=== PATIENT | male | born 1980 | race Caucasian/White ===

== ENCOUNTER 2025-03-09 17:37 | Emergency (ER) | payer BC, SELFPAY ==
[2025-03-09 17:42] VITALS: BP 141/81; PULSE 77; RESP 18; TEMP 36.8; O2SAT 98; BMI 24.3
[2025-03-09 17:50] LABS: Coronavirus 19, PCR Not Detected (NotDetected); Influenza A, PCR Not Detected (NotDetected); Influenza B, PCR Not Detected (NotDetected)
--- NOTE | 2025-03-09 18:31 | HMH.EDGENADL ---
Discharge Plan Disposition Patient Disposition: Home, Self-Care Condition: Good Referrals Follow up/Referrals: Provider,Referral, [Primary Care Provider, Medical] - See instructions Activity Restrictions/Add. Instructions Additional Instructions/Restrictions: Return to the emergency department or your primary care provider if you continue to have fevers for more than a week. Take Tylenol Motrin at home as needed. Return to the emergency department for any acute worsening symptoms or shortness of breath. Clinical Impressions Clinical Impression: Fever, Cough Stand Alone Forms Stand Alone Forms: Work/School Release Print Language Print Language: Polish Discharge ED Provider: Prabha Betts General Adult HPI General Chief complaint: Upper Respiratory Infection Stated complaint: cough, fever, congestion Time Seen by Provider: 03/09/25 17:42 Mode of Arrival: Ambulatory Source of Information: Patient and Spouse Description of Symptoms (Recalled from ER Triage Doc. by RN): patient presents for day 4 of fevers over 101-104.5 at home. patinet otherwise just feels unwell overall and has a cough with some chest congestion. patient took tylenol 30 minutes prior to arrival. History of Present Illness HPI narrative: Patient is a 45-year-old gentleman with no significant past medical history who presents to the emergency department with a fever for the last 2 days. Patient states that he does not have any chest pain or shortness of breath. Patient states that he has had some cough and upper respiratory symptoms. Patient states that he is mostly here because he just needs a work note. Denies any history of blood clots. He has not had any recent surgeries. Related Data Allergies Allergy/AdvReac Type Severity Reaction Status Date / Time No Known Allergies Allergy Verified 03/09/25 17:[address] [facility] Disclaimer: The information contained in this section may have been updated after the patient was seen, as this information can be updated by other users. Social History Smoking Status: Never smoker alcohol intake: never current occupational status: other Travel in the last 8 weeks?: None ROS Obtained: Yes All systems reviewed & no additional complaints except as documented and Yes Systems reviewed as appropriate & no additional complaints except as documented Physical Exam General General appearance: alert and in no apparent distress Head Head exam: atraumatic, normocephalic and normal inspection Eye Eye exam: Present normal appearance, PERRL and EOMI; Absent scleral icterus ENT ENT exam: Present normal exam, normal oropharynx, mucous membranes moist, TM's normal bilaterally and normal external ear exam Neck Neck exam: Present normal inspection and full ROM Chest Chest inspection: Present normal inspection and symmetric chest wall rise Respiratory Respiratory exam: Present normal lung sounds bilaterally; Absent respiratory distress or wheezes Cardiovascular Cardiovascular exam: Present regular rate, normal rhythm and normal heart sounds Abdominal Exam Abdominal exam: Present soft and distention; Absent tenderness, guarding or rebound Extremities Exam Extremities exam: Present normal inspection and full ROM Back Exam Back exam: Present normal inspection and full ROM Neurological Exam Neurological exam: Present alert and oriented X3 Psychiatric Psychiatric exam: Present normal affect and normal mood Skin Skin exam: Present warm and dry Medical Decision Making Medical Records Medical records reviewed: Yes I reviewed the patient's medical records. Screening: Per USPSTF and CDC recommendations, given the prevalence of disease in our region, it is our hospital?s policy to screen for HIV and viral Hepatitis for all patients aged 18 and over and those with ongoing risk factors. [place] Inquiry Pt receiving controlled substance: No Vital Signs: 03/09/25 17:42 03/09/25 19:30 Temperature 98.3 F 98.2 F Temperature Source Oral Temporal Artery Scan Pulse Rate 76 Pulse Rate [Right Radial] 77 Respiratory Rate 18 18 Blood Pressure 141/82 H Blood Pressure [Right Arm] 141/81 H Blood Pressure Mean [Right Arm] 101 Blood Pressure Source Automatic Cuff Blood Pressure Source [Right Arm] Automatic Cuff Blood Pressure Position Sitting Blood Pressure Position [Right Arm] Sitting 02 Sat by Pulse Oximetry 98 Oxygen Delivery Method Room Air Room Air Lab Data Lab results reviewed: Yes I reviewed the patient's lab results. Lab Results 03/09/25 17:46: SARS-CoV-2 (PCR) Not detected, Influenza A Untype (PCR) Not detected, Influenza Type B (PCR) Not detected Orders (Tests/Meds): ORDERS Category Date Time Status CXR 2 view (NOT portable) [XR chest 2V] Stat Exams 03/09/25 18:44 Completed Rapid PCR Covid and Flu A/B Stat Lab 03/09/25 17:46 Completed Medical Decision Narrative: Patient is an otherwise healthy 45-year-old male who presents to the emergency department with fever. On arrival, patient was hemodynamically stable with unremarkable vital signs. Differential includes but not limited to: Viral syndrome, pneumonia, strep pharyngitis, viral pharyngitis. Patient is a very well-appearing male no neck pain no meningismus to suggest meningitis. Respiratory swab was sent which was negative. Chest x-ray was obtained which was reviewed interpreted by myself and showed no acute focal consolidation, pneumothorax, pleural effusion or other acute cardiopulmonary process. Patient was recommended to take Tylenol Motrin at home. Patient was otherwise discharged home in stable condition with return precautions. Critical Care Critical Care Time Critical Care Time: No
--- NOTE | 2025-03-09 18:44 | XR_ITS ---
PROCEDURE INFORMATION: Exam: XR Chest Exam date and time: 03/09/2025 7:02 PM Age: 45 years old Clinical indication: Shortness of breath; Additional info: Shortness of breath/fever TECHNIQUE: Imaging protocol: Radiologic exam of the chest. Views: 2 views. COMPARISON: No relevant prior studies available. FINDINGS: Lungs: The lungs appear clear. No focal areas of consolidation. Pleural spaces: No pleural effusions. Negative for pneumothorax. Heart/Mediastinum: Cardiac silhouette and pulmonary vasculature are within range of normal. Bones/joints: There is no evidence of acute fracture. IMPRESSION: Negative for an acute cardiopulmonary abnormality.
[2025-03-09 19:30] VITALS: BP 141/82; PULSE 76; RESP 18; TEMP 36.8; O2SAT 100
== END 2025-03-09 19:30 | disposition home or self-care (01) ==
PROVIDERS: Emergency Provider Student in an Organized Health Care Education/Training Program
DX: R50.9 Fever, unspecified (principal); R05.1 Acute cough
CPT/HCPCS: 71046; 87636; 99282; 99283

== ENCOUNTER 2025-04-15 12:29 | Emergency (ER) | payer BC, SELFPAY ==
[2025-04-15 12:31] VITALS: BP 153/88; PULSE 78; RESP 18; TEMP 36.9; O2SAT 99; BMI 25.0
[2025-04-15 12:48] LABS: Coronavirus 19, PCR Not Detected (NotDetected); Influenza A, PCR Not Detected (NotDetected); Influenza B, PCR Not Detected (NotDetected)
[2025-04-15 13:00] VITALS: BP 145/84; PULSE 80; O2SAT 96
--- NOTE | 2025-04-15 13:37 | XR_ITS ---
FINAL REPORT TECHNIQUE: Chest PA & Lateral CLINICAL HISTORY: chronic cough, FEVER COMPARISON: 03/09/2025 FINDINGS: 2 views of the chest were performed. The heart size is normal. The mediastinum is within normal limits. There is no acute cardiopulmonary process. There are no pleural effusions. There is no pneumothorax. The bony thorax appears intact. IMPRESSION: No acute cardiopulmonary process. Reviewed, Interpreted and Dictated by Miky Paul MD Transcribed by Cherrie Garcia Authenticated and [facility]
--- NOTE | 2025-04-15 13:42 | ED_ITS ---
Discharge Plan Disposition Patient Disposition: Home, Self-Care Prescriptions Prescriptions: New azithromycin 250 mg tablet See Rx Instructions .ROUTE .COMPLEX Qty: 6 0RF Rx Instructions: For 250 mg dose pack: take 500 mg today (day 1), then 250 mg for 4 days (days 2-5) benzonatate 100 mg capsule 100 mg PO TID PRN (Reason: cough) 5 Days Qty: 20 0RF prednisone 50 mg tablet 50 mg PO DAILY 5 Days Qty: 5 0RF Rx Instructions: Please begin 1 day after ED visit albuterol sulfate 90 mcg/actuation HFA aerosol inhaler 4 inh inhalation Q4H PRN (Reason: shortness of breath or wheezing) Qty: 8.5 0RF Rx Instructions: 4 puffs every 4 hours for 48 hours then as needed for shortness of breath or wheezing following amoxicillin-pot clavulanate 875-125 mg tablet 1 tab PO BID 7 Days Qty: 14 0RF Referrals Follow up/Referrals: Provider,Referral, [Primary Care Provider, Medical] - See instructions Nidhi Roa MD [Physician, Pulmonology] - See instructions Activity Restrictions/Add. Instructions Additional Instructions/Restrictions: Your chronic cough is possibly multifactorial. We will cover for possible bacterial species such as pertussis or whooping cough as discussed. Additionally please change her air filters. Please stop smoking as discussed as you may have some reactive airways or early COPD. Make sure that you are not eating within 2 hours of going to sleep as reflux can cause the symptoms as well. Take all your medications as prescribed and follow-up with our lung doctor in 2 weeks if you are not improving. 1 other thing I would like you to get [id number] is chlorpheniramine 10 mg tablets please take 1 tablet at night as needed for postnasal drip. Clinical Impressions Clinical Impression: Chronic cough, Encounter for smoking cessation counseling Print Language Print Language: Guatemalan Discharge ED Provider: Jose Rodriguez Adult HPI General Chief complaint: Upper Respiratory Infection Stated complaint: Persistant Cough & Fevers Time Seen by Provider: 04/15/25 13:30 Mode of Arrival: Ambulatory Source of Information: Patient and Spouse Description of Symptoms (Recalled from ER Triage Doc. by RN): pt presents for evaluation of fever of 102 that lasted briefly last night. Pt reports also having a dry nagging cough that is worse at night. Took 500mg of tylenol a couple hours prior to arrival. Pt denies any other symptoms History of Present Illness HPI narrative: 45-year-old gentleman with a history of smoking presents today with 1 month of a cough. States it is exacerbated with going outside and he will have coughing fits. Did have a fever last night but overall over the last month he has not. Was here about a month ago told this was a viral URI. Denies any reflux type symptoms. Denies any exertional dyspnea. Denies any underlying lung or heart problems but he is a chronic smoker and does have a history of working in [employer]. Related Data Previous Rx's ?Medication ?Instructions ?Recorded albuterol sulfate 90 mcg/actuation 4 inh inhalation Q4 H PRN shortness 04/15/25 aerosol inhaler of breath or wheezing #8.5 g salena amoxicillin 875 mg-potassium 1 tab PO BID 7 days #14 t abs 04/15/25 clavulanate 125 mg tablet azithromycin 250 mg tablet See Rx Instructions PO .COM PLEX #6 04/15/25 tabs benzonatate 100 mg capsule 100 mg PO TID PRN cough 5 d ays #20 04/15/25 caps prednisone 50 mg tablet 50 mg PO DAILY 5 days #5 tab s 04/15/25 Allergies Allergy/AdvReac Type Severity Reaction Status Date / Time No Known Allergies Allergy Verified 03/09/25 17:46 [facility] Disclaimer: The information contained in this section may have been updated after the patient was seen, as this information can be updated by other users. Social History (Updated 03/11/25 @ 16:13 by Prabha Betts DO) Smoking Status: Current every day smoker alcohol intake: never current occupational status: other Travel in the last 8 weeks?: None Have you lived/traveled outside [place] in past 30 days?: No Contact w/someone who lives/traveled outside [place] past 30 days?: No Exposure to someone with infectious disease in past 14 days?: No Do you have a fever (greater than 100.4 F or 38 C)?: Yes Have you tested positive for COVID-19?: No Exposed to someone with COVID-19 in past 14 days?: No Do you have a sore throat?: No Do you have a cough?: Yes Do you have any weakness?: No Do you have any diarrhea?: No Are you experiencing any unusual bleeding?: No Do you have any muscle aches/pain?: No Do you have any abdominal pain?: No Are you experiencing loss of taste or smell?: No ROS Obtained: Yes All systems reviewed & no additional complaints except as documented Physical Exam General General appearance: alert Respiratory Respiratory exam: Present normal lung sounds bilaterally; Absent respiratory distress Cardiovascular Cardiovascular exam: Present regular rate and normal rhythm Abdominal Exam Abdominal exam: Present soft and distention Neurological Exam Neurological exam: Present alert and oriented X3 Medical Decision Making Medical Records Screening: Per USPSTF and CDC recommendations, given the prevalence of disease in our region, it is our hospital?s policy to screen for HIV and viral Hepatitis for all patients aged 18 and over and those with ongoing risk factors. [place] Inquiry Pt receiving controlled substance: No Vital Signs: 04/15/25 12:31 04/15/25 13:00 Temperature 98.4 F Temperature Source Oral Pulse Rate 80 Pulse Rate [Right] 78 Respiratory Rate 18 Blood Pressure 145/84 H Blood Pressure [Right Arm] 153/88 H Blood Pressure Mean [Right Arm] 109 Blood Pressure Source [Right Arm] Automatic Cuff Blood Pressure Position [Right Arm] Sitting 02 Sat by Pulse Oximetry 99 96 Oxygen Delivery Method Room Air Lab Data Lab results reviewed: Yes I reviewed the patient's lab results. Lab Results 04/15/25 12:35: SARS-CoV-2 (PCR) Not detected, Influenza A Untype (PCR) Not detected, Influenza Type B (PCR) Not detected Orders (Tests/Meds): ORDERS Category Date Time Status Chest XR 2 view (NOT portable) [XR chest 2V] Stat Exams 04/15/25 13:37 Ordered Rapid PCR Covid and Flu A/B Stat Lab 04/15/25 12:35 Completed Medical Decision Narrative: 45-year-old with above history and physical very nontoxic well-appearing normal respiratory and cardiovascular exam on my assessment. Will get a chest x-ray to make sure there is no obvious consolidation or malignancy etc. Otherwise lei atment will be broad as numerous conditions can cause this such as postnasal drip, reflux, COPD and reactive airway disease, pertussis or whooping cough, etc. Will broadly treat him with steroids breathing treatment antibiotic X antihistamine etc. Get a chest x-ray to make sure is no obvious abnormality. Lastly I will give him pulmonary follow-up to make sure his symptoms discussion regarding smoking cessation which is the most important aspect of his overall healing. Patient was discharged in stable condition. Critical Care Critical Care Time Critical Care Time: No
[2025-04-15 13:57] VITALS: BP 155/80; PULSE 81; RESP 18; TEMP 36.9; O2SAT 98
== END 2025-04-15 13:57 | disposition home or self-care (01) ==
PROVIDERS: Emergency Provider Student in an Organized Health Care Education/Training Program
DX: R05.3 Chronic cough (principal); F17.200 Nicotine dependence, unspecified, uncomplicated; Z71.6 Tobacco abuse counseling
CPT/HCPCS: 71046; 87636; 99283